=== PATIENT | female | born 1955 | race American Indian/Alaskan Native ===

== ENCOUNTER 2017-11-26 09:05 | Emergency (ER) | payer OTHER ==
--- NOTE | 2017-11-26 11:22 | C.PDOC ---
History Of Present Illness 62yo female with history of anxiety and hypertension, comes in with complaints of feeling stressed out. Patient states she has had elevated blood pressure for the past 3 days (does not know exact measure) and states she has been noncompliant with her medication because she misplaced them. She denies any headache, weakness, vision changes. She offers no other medical complaints. Time Seen by Provider: 11/26/17 09:34 Chief Complaint (Nursing): High Blood Pressure History Per: Patient History/Exam Limitations: no limitations Onset/Duration Of Symptoms: Days Current Symptoms Are (Timing): Still Present Associated Symptoms: denies: Chest Pain, Dizziness, Blurred Vision, Focal Weakness, Headache Additional History Per: Patient Past Medical History Reviewed: Historical Data, Nursing Documentation, Vital Signs Vital Signs: Last Vital Signs Temp 97.6 F 11/26/17 12:01 Pulse 66 11/26/17 12:01 Resp 18 11/26/17 12:35 BP 156/100 H 11/26/17 12:01 Pulse Ox 98 11/26/17 12:15 - Medical History PMH: Asthma, Depression, HTN Surgical History: No Surg Hx Family History: States: No Known Family Hx - Social History Hx Alcohol Use: No Hx Substance Use: No - Immunization History Hx Tetanus Toxoid Vaccination: No Hx Influenza Vaccination: No Hx Pneumococcal Vaccination: No Review Of Systems Except As Marked, All Systems Reviewed And Found Negative. Constitutional: Negative for: Weakness Eyes: Negative for: Vision Change Cardiovascular: Positive for: Other (high blood pressure). Negative for: Chest Pain Neurological: Negative for: Dizziness Physical Exam - Physical Exam Appears: Non-toxic, No Acute Distress Skin: Normal Color, Warm, Dry Head: Atraumatic, Normacephalic Eye(s): bilateral: Normal Inspection Oral Mucosa: Moist Neck: Normal ROM, Supple Chest: Symmetrical Cardiovascular: Rhythm Regular Respiratory: Normal Breath Sounds Gastrointestinal/Abdominal: Soft, No Tenderness Extremity: Normal ROM Neurological/Psych: Oriented x3 ED Course And Treatment O2 Sat by Pulse Oximetry: 98 (RA) Pulse Ox Interpretation: Normal Medical Decision Making Medical Decision Making: Impression: HTN Plan: -- Catapres 0.2mg PO Progress: RN informs me the patient wants to leave ER. BP is still elevated. I explain to the patient we need to observe her blood pressure and give medication. She does not want to stay and signs AMA form. The patient returns within 5 minutes saying she will stay. Plan is to order labs and give catapre. BP checked again and has improved. The patient wants discharge paper. will give Rx for meds Disposition Counseled Patient/Family Regarding: Diagnosis, Need For Followup - Disposition Referrals: [facility] [Outside] [facility]Outside[facility] Disposition: HOME/ ROUTINE Disposition Time: 12:13 Condition: STABLE Additional Instructions: Follow up with the clinic in 2-5 days for further evaluation. Take medications as prescribed. Return to the emergency department at any time if symptoms persist or worsen. You may call [facility] for any assistance . 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 - Scribe Statement The provider has reviewed the documentation as recorded by the Scribe (Hiral Gunderson) Provider Attestation: All medical record entries made by the Morenaibe were at my direction and personally dictated by me. I have reviewed the chart and agree that the record accurately reflects my personal performance of the history, physical exam, medical decision making, and the department course for this patient. I have also personally directed, reviewed, and agree with the discharge instructions and disposition.
[2017-11-26 12:02] VITALS: BP 156/100; PULSE 66; RESP 18; TEMP 97.6
[2017-11-26 12:15] VITALS: O2SAT 98
== END 2017-11-26 12:46 | disposition home or self-care (01) ==
LOC: C.ER 09:05
DX: I10 Essential (primary) hypertension (principal)

== ENCOUNTER 2017-12-04 23:59 | Emergency (ER) | payer OTHER ==
[2017-12-05 00:05] VITALS: BP 158/95; PULSE 86; RESP 20; TEMP 98.8; O2SAT 98
--- NOTE | 2017-12-05 00:21 | C.PDOC ---
History Of Present Illness Patient presents to ED via EMS from [facility] for evaluation of headache , cough, chills, sore throat and loss of voice over the last few days. Patient states she has been coughing up white sputum and is not feeling any better. Denies any SOB. Time Seen by Provider: 12/05/17 00:12 Chief Complaint (Nursing): Headache History Per: Patient History/Exam Limitations: no limitations Onset/Duration Of Symptoms: Days Past Medical History Reviewed: Historical Data, Nursing Documentation, Vital Signs Vital Signs: Last Vital Signs Temp 98.8 F 12/05/17 00:00 Pulse 86 12/05/17 00:00 Resp 20 12/05/17 01:02 BP 158/95 H 12/05/17 00:00 Pulse Ox 98 12/05/17 00:23 - Medical History PMH: Asthma, Depression, HTN Family History: States: Unknown Family Hx - Social History Hx Alcohol Use: No Hx Substance Use: No - Immunization History Hx Tetanus Toxoid Vaccination: No Hx Influenza Vaccination: No Hx Pneumococcal Vaccination: No Review Of Systems Constitutional: Positive for: Malaise. Negative for: Fever Eyes: Negative for: Vision Change, Redness ENT: Positive for: Throat Pain. Negative for: Ear Pain Respiratory: Positive for: Cough, Sputum Gastrointestinal: Negative for: Abdominal Pain Skin: Negative for: Rash Neurological: Positive for: Headache Physical Exam - Physical Exam Appears: Non-toxic, No Acute Distress Skin: Warm, Dry, No Diaphoretic, No Rash Head: Atraumatic, Normacephalic Eye(s): bilateral: Normal Inspection, EOMI Ear(s): Bilateral: Normal Nose: Normal Oral Mucosa: Moist Throat: No Erythema, No Exudate, No Drooling, No Mass, Other (hoarseness of voice) Neck: Normal ROM Chest: Symmetrical Cardiovascular: Rhythm Regular, No Murmur Respiratory: Normal Breath Sounds, No Accessory Muscle Use, No Rales, No Rhonchi , No Wheezing, Other (coughing) Extremity: Normal ROM Neurological/Psych: Oriented x3, Normal Speech ED Course And Treatment O2 Sat by Pulse Oximetry: 98 Medical Decision Making Medical Decision Making: Patient with cough, congestion, and throat pain for few days. Patient is homeless. Will treat with Zithromax and give sudafed to help with congestion. Patient has no fever and appears nontoxic and in no distress. Stable for discharge Disposition Counseled Patient/Family Regarding: Diagnosis, Need For Followup, Rx Given - Disposition Referrals: [facility] [Outside] [facility] [employer] [Outside] Disposition: HOME/ ROUTINE Disposition Time: 01:00 Condition: STABLE Additional Instructions: Follow up with the clinic in 2-5 days for further evaluation Take medications as prescribed. Return to the emergency department at any time if symptoms persist or worsen. Prescriptions: Azithromycin [Zithromax] 250 mg PO DAILY #4 tab Instructions: Bacterial Upper Respiratory Infection, Adult (DC) Forms: [employer] ([place]), Work Excuse - POA Present On Arrival: None - Clinical Impression Clinical Impression: URI (upper respiratory infection)
== END 2017-12-05 01:02 | disposition home or self-care (01) ==
LOC: C.ER 23:59
DX: J06.9 Acute upper respiratory infection, unspecified (principal)

== ENCOUNTER 2018-03-22 18:41 | Emergency (ER) | payer MEDICAID, OTHER ==
[2018-03-22 20:25] VITALS: RESP 18
--- NOTE | 2018-03-22 20:48 | C.PDOC ---
History Of Present Illness 63 year old female patient with hx of HTN, ulcer, asthma and depression brought by EMS due to syncopal episode. Patient reports she was walking and fell injuring her head, right arm and right leg. Patient notes she has a pounding headache with minor swelling. Patient denies dizziness, nausea and vomiting. Time Seen by Provider: 03/22/18 20:28 Chief Complaint (Nursing): Medical Clearance History Per: Patient History/Exam Limitations: no limitations Onset/Duration Of Symptoms: Hrs Current Symptoms Are (Timing): Still Present Past Medical History Reviewed: Historical Data, Nursing Documentation, Vital Signs Vital Signs: Last Vital Signs Temp 99.0 F 03/22/18 20:17 Pulse 89 03/22/18 20:17 Resp 18 03/22/18 20:17 BP 127/88 03/22/18 20:17 Pulse Ox 95 03/22/18 20:17 - Medical History PMH: Asthma, Depression, HTN Family History: States: Unknown Family Hx - Social History Hx Alcohol Use: No Hx Substance Use: No - Immunization History Hx Tetanus Toxoid Vaccination: No Hx Influenza Vaccination: No Hx Pneumococcal Vaccination: No Review Of Systems Except As Marked, All Systems Reviewed And Found Negative. Constitutional: Positive for: Other (syncope ) Gastrointestinal: Negative for: Nausea, Vomiting Musculoskeletal: Positive for: Arm Pain (right), Leg Pain (right) Neurological: Positive for: Headache. Negative for: Dizziness Physical Exam - Physical Exam Appears: Non-toxic, No Acute Distress Skin: Normal Color, Warm, Dry Head: Atraumatic, Normacephalic Chest: Symmetrical, No Deformity Cardiovascular: Rhythm Regular Respiratory: Normal Breath Sounds Gastrointestinal/Abdominal: Soft, No Tenderness Back: No CVA Tenderness Extremity: Normal ROM (x4) Pulses: Left Radial: Normal, Right Radial: Normal, Left Dorsalis Pedis: Normal, Right Dorsalis Pedis: Normal Neurological/Psych: Oriented x3, Normal Speech ED Course And Treatment O2 Sat by Pulse Oximetry: 95 (RA) Pulse Ox Interpretation: Normal Medical Decision Making Medical Decision Making: Impression: fall on the street Plans: -- tylenol -- XR right ankle -- XR right wrist No fractures. Patient also has a small hematoma to forehead. Patient requesting to stay in the hospital for "more tests". 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 Disposition - Disposition Disposition: HOME/ ROUTINE Disposition Time: 22:07 Condition: STABLE Additional Instructions: 1. Take Tylenol for the pain. 2. Ice the affected areas 3 times a day. 3. Follow up with your doctor. Instructions: Contusion (DC) Forms: [facility] (K[place]itian), General Discharge Instructions - POA Present On Arrival: None - Clinical Impression Clinical Impression: Fall, Contusion - Scribe Statement The provider has reviewed the documentation as recorded by the Scribe Brand Do Provider Attestation: All medical record entries made by the Scribe were at my direction and personally dictated by me. I have reviewed the chart and agree that the record accurately reflects my personal performance of the history, physical exam, [facility] decision making, and the department course for this patient. I have also personally directed, reviewed, and agree with the discharge instructions and disposition.
[2018-03-22 23:00] VITALS: BP 141/82; PULSE 80; TEMP 97.4; O2SAT 99
--- NOTE | 2018-03-23 09:30 | RAD ---
Date of service: 03/22/2018 PROCEDURE: Right Ankle Radiographs. HISTORY: fall COMPARISON: No prior study available for comparison FINDINGS: BONES: No evidence of acute displaced fracture nor dislocation. ORIF changes distal right fibula. There is a long segment fixation plate which is attached to the lateral aspect of the distal fibula within interference screw traversing anterior to posterior in the lower the diametaphyseal region. There is overlying mild soft tissue swelling overlying the lateral malleolus. JOINTS: Mild degenerative osteoarthritis ankle mortise maintained. Talar dome intact SOFT TISSUES: As above. OTHER FINDINGS: None. IMPRESSION: No evidence of acute displaced fracture nor dislocation. ORIF distal right fibula as described. Mild degenerative osteoarthritis.
--- NOTE | 2018-03-23 09:57 | RAD ---
Date of service: 03/22/2018 PROCEDURE: Right Wrist Radiographs. HISTORY: fall COMPARISON: None. FINDINGS: BONES: Normal. No fracture. JOINTS: Mild multi articular degenerative osteoarthritis. There also appear to be cystic changes within the navicular and possibly within capitate. SOFT TISSUES: Normal. OTHER FINDINGS: None. IMPRESSION: No acute fractures. Mild multi articular degenerative osteoarthritis with apparent cystic changes in the navicular and possibly in the capitate. If symptoms persist or occult fracture suspected clinically recommend repeat radiographs in 7-10 days as most fractures should become radiographically evident in this timeframe.
== END 2018-03-22 23:40 | disposition home or self-care (01) ==
LOC: C.ER 18:41
DX: S00.83XA Contusion of other part of head, initial encounter (principal); W18.30XA Fall on same level, unspecified, initial encounter; Y93.01 Activity, walking, marching and hiking